=== PATIENT | female | born 1990 | race Caucasian/White ===

== ENCOUNTER 2020-05-15 23:28 | Inpatient (IN) | payer OTHER ==
[~2020-05-15] VITALS: Ht 154.9 cm; Wt 70.0 kg
[2020-05-15 23:37] VITALS: BP 103/75; TEMP 98.6
[2020-05-16] VITALS (16 sets, daily range): BP systolic 90–116; BP diastolic 62–90; TEMP 97.5–98.4; Ht 154.9 cm; Wt 70.0 kg
[2020-05-16 00:34] LABS: POTASSIUM 3.4 mmol/L (3.6-5.2)
[2020-05-16 00:45] LABS: PLATELET COUNT 267 K/uL (152-353)
--- NOTE | 2020-05-16 06:50 | NUR ---
22 G RAC PLACED AT THIS TIME WITH 125 D5W NS RUNNING. IV SITE FLUSHES WELL AND PT IS RESTING WELL AND SHOWS NO SIGNS OF DISCOMFORT AT THIS TIME.
--- NOTE | 2020-05-16 12:26 | NUR ---
VO ORDER RECEIVED BY DR. RIVERS. 20 mEq POTASSIUM PO ONE TIME DOSE. ORDER INPUT BY WOOL SUPPLIER.
[2020-05-16] MEDS ORDERED: FURO40TA93 PO (15:47)
[2020-05-16] MEDS ORDERED: K-TAB20 MEQ PO (15:49)
--- NOTE | 2020-05-16 19:45 | NUR ---
PT SITTING UP ON BEDSIDE COMMODE AT THIS TIME ON PHONE. PT ASK FOR ORANGE JUICE AT THIS TIME. PT DENIES ANY PAIN OR DISCOMFORT AT THIS TIME.
--- NOTE | 2020-05-17 02:30 | NUR ---
PT. RESTING WITH EYES CLOSED LYING SUPINE WITH SIDE RAILS UP TIMES TWO WITH BED IN LOWEST POSITION. IV SALINE LOCKED.
[2020-05-17 02:34] LABS: PLATELET COUNT 293 K/uL (152-353)
[2020-05-17 02:36] LABS: POTASSIUM 3.7 mmol/L (3.6-5.2)
[2020-05-17 04:05] VITALS: BP 87/56; TEMP 98.3
[2020-05-17 08:00] VITALS: BP 97/70; TEMP 97.9
--- NOTE | 2020-05-17 08:00 | NUR ---
ENTERED PT'S ROOM, PT IS ASLEEP IN LF. PT IS SLIGHTLY DIFFICULT TO AROUSE AND SEEMS VERY DROWSY. PT STATES THAT SHE DOES NOT FEEL VERY WELL THIS MORNING AND IS LIGHTHEADED. UPON LISTENING TO THE PT'S HEART SOUNDS, THE HEART IS BEATING VERY RAPIDLY. DR. BERNAL WAS NOTIFIED AND AN ORDER WAS PUT IN FOR TELEMETRY.
[2020-05-17 12:00] VITALS: BP 97/68; TEMP 98.1
[2020-05-17 16:00] VITALS: BP 99/62; TEMP 97.9
--- NOTE | 2020-05-17 16:30 | NUR ---
PT ASKED PCT IF SHE CAN GO OUT TO SMOKE. DINING ROOM HELPER WENT TO PT'S ROOM AND STATED THAT DUE TO COVID RESTRICTIONS SHE CANNOT WALK THROUGH THE HALLS TO GO SMOKE. PT WAS ASKED IF A NICOTENE PATCH WOULD WORK INSTEAD, PT STATED THAT IT WOULD. WAS CONTACTED AND GAVE THE ORDER FOR NICOTENE PATCH. NO FURTHER ORDERS AT THIS TIME.
[2020-05-17 20:03] VITALS: BP 96/62; TEMP 97.5
--- NOTE | 2020-05-17 20:15 | NUR ---
ENTERED PATIENT'S ROOM. PATIENT LYING IN BED WATCHING TV. RESPIRATIONS EVEN AND UNLABORED. 20G TO LEFT AC PATENT AND INTACT. ABX INFUSING AT THIS TIME FROM PREVIOUS SHIFT. DENIES PAIN OR ANY OTHER CONCERNS. BED LOCKED AND IN LOWEST POSITION. CALL LIGHT WITHIN EASY REACH.
[2020-05-18] VITALS: BP 96/68; TEMP 98.4
[2020-05-18 04:00] VITALS: BP 94/67; TEMP 98
[2020-05-18 04:59] LABS: PLATELET COUNT 270 K/uL (152-353)
[2020-05-18 05:13] LABS: POTASSIUM 4.3 mmol/L (3.6-5.2)
--- NOTE | 2020-05-18 06:24 | NUR ---
PATIENT RESTING QUIETLY IN BED. RESPIRATIONS EVEN AND UNLABORED. CALL LIGHT WITHIN REACH.
[2020-05-18 08:00] VITALS: BP 82/55; TEMP 98.1
--- NOTE | 2020-05-18 12:05 | NUR ---
PT EDUCATED ON DISCHARGE INSTRUCTIONS, PT VERBALIZED UNDERSTANDING. WAITING TO MAKE A FOLLOWUP APPT FOR PT DUE TO PHYSICIANS OFFICE BEING CLOSED FOR LUNCH. WILL CONTACT PT AFTER FOLLOWUP APPT IS MADE TO GIVE INFORMATION. IV WAS REMOVED WITH NO DIFFICULTY AND CATHETER INTACT. PT LEFT BUILDING BY WALKING TO VEHICLE DRIVEN BY A FRIEND WHILE CARRYING PERSONAL BELONGINGS. NAD WAS NOTED DURING DISCHARGE.
[2020-05-18 12:08] VITALS: BP 108/74; TEMP 98
== END 2020-05-18 12:05 | disposition home or self-care (01) | DRG 293 ==
LOC: ED 23:28 → MED/SURG 05-16 04:40
PROVIDERS: Internal Medicine; ADMIT Emergency Medicine Emergency Medical Services; ATTEND Internal Medicine Endocrinology, Diabetes & Metabolism
DX: I50.43 Acute on chronic combined systolic (congestive) and diastolic (congestive) heart failure (principal); F15.10 Other stimulant abuse, uncomplicated; F12.10 Cannabis abuse, uncomplicated; Z91.19 Patient's noncompliance with other medical treatment and regimen; Z86.711 Personal history of pulmonary embolism
CPT/HCPCS: 36415; 80048; 80053; 80307; 81000; 81025; 83880; 84484; 85027; 85379; 87635; 93005; 94760; 96360; 96361; 96375; 99284; J1650; J1940; J1956; J2060; J2405; Q9963; U0003